=== PATIENT | female | born 1970 | race Caucasian/White ===

== ENCOUNTER 2018-03-03 22:14 | Inpatient (IN) | payer OTHER ==
[~2018-03-03] VITALS: Ht 162.6 cm; Wt 62.3 kg
[~2018-03-03 22:14] MED LIST: AMANTADINE HCL100 M2 PO; AMBIEN10 M1 PO; AMPHETAMINE SAL10 MG PO; AMRIX15 M1 PO; B12 1MG PE1000 MCG/M IM; BENADRYL ALLERG25 MG PO; BENADRYL50 MG/ML; CARISOPRODOL350 M1 PO; CARISOPRODOL350 MG PO; COUMADIN 1 MG TA1 MG PO; COUMADIN 5 MG TA5 MG PO; CYANOCOBAL1000 MCG/2 IM; CYMBALTA30 M1 PO; DEXTROAMP-AMPHE10 MG PO; DIAZEPAM5 MG PO; DILAUDID 4 MG TA4 MG PO; DILAUDID2 MG PO; DILAUDID4 M1 PO; DILAUDID8 MG PO; ERGOCALCIFER50000 IU PO; FIORICET 325 MG1 TAB PO; HYDROMORPHONE HC4 M1 PO; HYDROMORPHONE HC4 MG PO; IBU800 MG PO; IMITREX50 M1 PO; ISOMETHEPT-DIC1 EACH PO; MAGNESIUM OXID500 MG PO; METOCLOPRAMIDE10 MG PO; NAPROXEN SODIU550 M1 PO; NAPROXEN SODIU550 MG PO; ONDANSETRON HCL8 MG PO; REGLAN10 M1 PO; REGLAN10 MG PO; RELISTOR 112 MG/0.6 SC; SUMATRIPTAN SU100 MG PO; TIZANIDINE HCL2 M1 PO; TOPIRAMATE100 M2 PO; TORADOL IV; TRAZODONE HCL50 M1 PO; TYLENOL XSTR500 MG PO; VALIUM5 M2 PO; VITAMIN D350000 UNIT PO; VITAMIN D50000 IU PO; VOLTAREN100 GM TOP; ZOFRAN4 MG/5 ML IV; [UNRECOGNIZED DRUG - OTHER] IV; [UNRECOGNIZED DRUG - OTHER] IV
--- NOTE | 2018-03-04 00:15 | ED GENERAL ADULT ---
History of Present Illness General Chief Complaint: General Adult Stated Complaint: UNSTEADY GAIT, "09/28 PAIN WAIST DOWN" Source: patient, family, old records Exam Limitations: no limitations Vital Signs & Intake/Output Vital Signs & Intake/Output Vital Signs Date Time Temp Pulse Resp B/P B/P Pulse O2 O2 Flow FiO2 Mean Ox Delivery Rate 03/035 98.4 102 18 109/70 99 Room Air ED Intake and Output 03/04 0000 03/03 1200 Intake Total Output Total Balance Patient 121 lb Weight Weight Estimated Measurement Method Allergies Coded Allergies: No Known Allergies (02/28/16) Reconcile Medications Carisoprodol 350 MG TABLET 1 TAB PO BIDP PRN MUSCLE RELAXER (Reported) Cholecalciferol (Vitamin D3) (Vitamin D3) 50,000 UNIT CAPSULE 1 CAP PO QFRI SUPPLEMENT (Reported) Cyanocobalamin (Vitamin B-12) (Cyanocobalamin Injection) 1,000 MCG/1 ML VIAL 1 ML IM QWED SUPPLEMENT (Reported) Cyclobenzaprine HCl (Amrix) 15 MG CAP.ER.24H 1 CAP PO QPM MUSCLE RELAXER ( Reported) Dextroamphetamine/Amphetamine (Dextroamp-Amphetamin 10 MG Tab) 10 MG TABLET 1 TAB PO DAILY ALERTNESS (Reported) Diazepam (Valium) 5 MG TABLET 1 TAB PO TID ANXIETY (Reported) Diclofenac Sodium (Voltaren) 1 % GEL..GRAM. 1 GUERRERO TOP AD PRN NECK (Reported) apply to affected area(s) Duloxetine Hydrochloride (Cymbalta) 30 MG CAPSULE.DR 90 MG PO DAILY BONE PAIN (Reported) Isomethept/Dichlphn/Acetaminop (Ihqohifzoz-Jkvheoiayy-Zmavcsun) 65 MG-100 MG-325 MG CAPSULE 1 TAB PO PRN MIGRAINES (Reported) Magnesium Oxide 500 MG TABLET 1 TAB PO DAILY SUPPLEMENT (Reported) Metoclopramide HCl (Reglan) 10 MG TABLET 1 TAB PO AD PRN MIGRAINES (Reported) 30 minutes before meals and bedtime Naproxen Sodium 550 MG TABLET 1 TAB PO AD PRN MIGRAINES (Reported) Ondansetron HCl 8 MG TABLET 1 TAB PO PRN NAUSEA AFTER IVIG (Reported) Sumatriptan Succinate (Imitrex) 50 MG TABLET 2 TAB PO DAILY migraine please take the tablets each, two hrs apart.. Tizanidine HCl 2 MG TABLET 3 TAB PO QPM MUSCLE RELAXER (Reported) Topiramate 100 MG TABLET 1 TAB PO TID MIGRAINE (Reported) Trazodone HCl 50 MG TABLET 1 TAB PO QPM PRN SLEEP (Reported) Zolpidem Tartrate (Ambien) 10 MG TABLET 1 TAB PO QHS PRN SLEEP (Reported) Triage Note: RECEIVED 47 YO FEMALE C/O BILATERAL HIP PAIN AND LOWER BACK PAIN, 09/28. PT ALSO C/O SEVERE MIGRAINE H/A THIS AM. PT CURRENTLY IN PAIN CLINIC AND INSTRUCTED TO GO TO THE ED FOR A [address] BRYANT. Triage Nurses Notes Reviewed? yes HPI: Patient sent in for admission for MS exacerbation. She was also patient with the pain clinic. Patient states that she has pain 12 out of 10 in her lower back and both hips. Patient feels weak secondary to the EMS as well as the pain. Her pain is unrelieved with her pain medication at home. Similar symptoms in the past with MS exacerbations. Patient was sent in for admission. Patient denies any fevers or chills. Past History Travel History Traveled to [place] past 21 day No Medical History Any Pertinent Medical History? see below for history Neurological: migraine, multiple sclerosis, "NEUROLOGIC LYME DISEASE" EENT: NONE Cardiovascular: NONE Respiratory: NONE Gastrointestinal: NONE Hepatic: NONE Renal: NONE Musculoskeletal: fracture, POSTERIOR TIBIA FX POSTERIOR TIBIAL TENDONIT Psychiatric: anxiety, insomnia Endocrine: NONE Blood Disorders: IV IG TREATMENTS Cancer(s): NONE CORRECTIONS CADET/Reproductive: NONE Other Medical Hx: Insomnia History of MRSA: No History of VRE: No History of CDIFF: No Surgical History Surgical History: non-contributory, N Psychosocial History Who do you live with Family Services at Home Nursing What is your primary language American Tobacco Use: Never used ETOH Use: denies use Illicit Drug Use: denies illicit drug use Family History Family History, If Any: MOTHER Uterine fibroid Hx Contributory? No Review of Systems Review of Systems Constitutional: Reports: no symptoms. EENTM: Reports: no symptoms. Respiratory: Reports: no symptoms. Cardiovascular: Reports: no symptoms. GI: Reports: no symptoms. Genitourinary: Reports: no symptoms. Musculoskeletal: Reports: see HPI, back pain, joint pain. Skin: Reports: no symptoms. Neurological/Psychological: Reports: see HPI, anxiety, headache, weakness. Hematologic/Endocrine: Reports: no symptoms. Immunologic/Allergic: Reports: no symptoms. All Other Systems: Reviewed and Negative Physical Exam Physical Exam General Appearance: well developed/nourished, alert, awake, moderate distress Head: atraumatic, normal appearance Eyes: Bilateral: PERRL, EOMI. Ears, Nose, Throat: normal pharynx, normal ENT inspection Neck: normal inspection, supple, full range of motion Respiratory: normal breath sounds, chest non-tender, no respiratory distress, lungs clear Cardiovascular: regular rate/rhythm, normal peripheral pulses Gastrointestinal: normal bowel sounds, soft, non-tender Back: normal inspection Extremities: normal inspection, normal capillary refill, no edema Neurologic/Psych: no motor/sensory deficits, awake, alert Skin: intact, normal color, warm/dry Core Measures ACS in differential dx? No CVA/TIA Diagnosis: No Sepsis Present: No Sepsis Focused Exam Completed? No Progress Differential Diagnoses I considered the following diagnoses in my evaluation of the patient: [MS EXACERBATION] Plan of Care: Orders Procedure Date/time Status Heart Healthy Diet 03/04 B Active Patient Data 03/04 101 Active ED Holding Orders 03/04 57 Active Admit to inpatient 03/04 57 Active Vital Signs 03/04 57 Active Code Status 03/04 57 Active URINALYSIS 03/04 8 Active COMPREHENSIVE METABOLIC PANEL 03/04 8 Complete CBC WITHOUT DIFFERENTIAL 03/04 8 Complete Current Medications Sig/Brent Start time Last Medication Dose Stop Time Status Admin Methylprednisolone 1,000 MG ONCE ONE 03/04 0030 AC 03/04 (Solu Medrol) 03/04 022 0100 Dextrose/Water 1,000 ML (D5W 1000) Laboratory Tests 03/04/18 0017: Anion Gap 11, Estimated GFR > 60, BUN/Creatinine Ratio 20.0, Glucose 97, Calcium 9.1, Total Bilirubin 0.4, AST 29, ALT 21, Alkaline Phosphatase 50, Total Protein 8.0, Albumin 4.2, Globulin 3.8, Albumin/Globulin Ratio 1.1, CBC w Diff NO MAN DIFF REQ, RBC 4.39, MCV 88.8, MCH 30.2, MCHC 34.1, RDW 13.4, MPV 7.8, Gran % 62.5, Lymphocytes % 25.6, Monocytes % 7.9, Eosinophils % 3.2, Basophils % 0.8, Absolute Granulocytes 3.1, Absolute Lymphocytes 1.3, Absolute Monocytes 0.4, Absolute Eosinophils 0.2, Absolute Basophils 0 Initial ED EKG: none Departure Departure Disposition: STILL A PATIENT Condition: Stable Clinical Impression Primary Impression: Exacerbation of multiple sclerosis Referrals: Ron EDDY,Kaylin Grier (PCP/Family) Departure Forms: Customer Survey General Discharge Information Admission Note Spoke With: Nikos Siddiqi MD Documentation of Exam: Documentation of any treatments & extenuating circumstances including Concerns Regarding Discharge (functional status, medication knowledge or non-compliance, living conditions, etc.) that warrant an admission rather than observation: [ PULSE DOSE STEROIDS, DAPTOMYCIN, WILL CONSULT, PT EVALUATION, PAIN CONTROL] Critical Care Note Critical Care Note Critical Care Time: non-applicable
[2018-03-04 00:37] LABS: ABSOLUTE BASOPHIL COUNT 0 /CUMM (0.0-0.2); ABSOLUTE EOSINOPHIL COUNT 0.2 /CUMM (0.0-0.7); ABSOLUTE GRANULOCYTE CT 3.1 /CUMM (1.4-6.5); ABSOLUTE LYMPH COUNT 1.3 /CUMM (1.2-3.4); ABSOLUTE MONOCYTE COUNT 0.4 /CUMM (0.10-0.60); BASOPHIL % 0.8 % (0.0-2.0); EOSINOPHIL % 3.2 % (0-5); GRANULOCYTE % 62.5 % (42.2-75.2); MEAN CORPUSCULAR HGB 30.2 PG (27.0-31.0); MEAN CORPUSCULAR HGB CONC 34.1 G/DL (33.0-37.0); MEAN CORPUSCULAR VOLUME 88.8 FL (81.0-99.0); MEAN PLATELET VOLUME 7.8 FL (7.4-10.4); PLATELET COUNT 273 /CUMM (130-400); RBC DISTRIBUTION WIDTH 13.4 % (11.5-14.5); RED BLOOD CELL CT 4.39 /CUMM (4.20-5.40)
--- NOTE | 2018-03-04 01:08 | History & Physical ---
Vic EDDY,Katelynn 03/04/18 0108: General Information and HPI MD Statement: I have seen and personally examined SEMAUS WHEELER and documented this H&P. The patient is a 47 year old F who presented with a patient stated chief complaint of [bilateral hip pain and headache]. Source of Information: patient, family, old records Exam Limitations: no limitations History of Present Illness: 47 yo F with a past medical history of multiple sclerosis, migraine, anxiety, depression, remitting-relapsing MS. who presents to ED complaining of severe pain in both hips 09/28, unsteady gait, headache which all started this morning. The patient was last admitted to [facility] in June 2017 for acute relapse of MS. Since then she was following up with Dr. Ferro and with pain management clinic. The patient reports that her pain was perfectly controlled with her pain meds prescribed through the pain management ([facility] Massey) however last week when she saw her neurologist she was advised to come to the hospital for 5 day course of daptomycin and steroids. This morning when she woke up from sleep she started having sharp pain in both hips which radiates down to the back of her left knee. She was not able to walk because of the pain. She felt a little weakness but most likely it was due to the pain as per the patient words. She also complains of severe headache which involves the back of her head and go to the front associated with associated with left eyebrow, eyelids and upper lip twitching in addition to few twitches in her neck. Patient also endorses chronic tingling to her left upper back. Patient mentioned that she only follow-up with pain management and neurologist, Patient mentioned that that has been recent changes to her medication, with the addition of Exalgo (extended release Dilaudid 12 mg once daily with Dilaudid 8 mg for breakthrough pain. Patient mentioned that today she ran out of the Exalgo and she think this might have triggered her pain. She also reports feeling anxious, nausea, hot flashes. She denies any chest pain, cough, vomiting, diarrhea or constipation. She also denies any urinary or fecal incontinence or focal weakness. Patient denies any other hospital admissions other than [facility]. She receives IVIG every 4 weeks the last dose was on 02/09 and 02/10. Which she takes at home. Allergies/Medications Allergies: Coded Allergies: No Known Allergies (02/28/16) Past History Travel History Traveled to [place] past 21 day No Medical History Neurological: migraine, multiple sclerosis, "NEUROLOGIC LYME DISEASE" EENT: NONE Cardiovascular: NONE Respiratory: NONE Gastrointestinal: NONE Hepatic: NONE Renal: NONE Musculoskeletal: fracture, POSTERIOR TIBIA FX POSTERIOR TIBIAL TENDONIT Psychiatric: anxiety, insomnia Endocrine: NONE Blood Disorders: IV IG TREATMENTS Cancer(s): NONE DIRECTOR OF EVENT MARKETING/Reproductive: NONE Other Medical Hx: Insomnia History of MRSA: No History of VRE: No History of CDIFF: No Surgical History Surgical History: non-contributory, N Past Family/Social History Family History Relations & Conditions if any MOTHER Uterine fibroid Psychosocial History Services at Home: Nursing Smoking Status: Never Smoked ETOH Use: denies use Illicit Drug Use: denies illicit drug use Functional Ability ADLs Independent: dressing, eating, toileting, bathing. Ambulation: independent IADLs Independent: shopping, housework, finances, food prep, telephone, transportation , medication admin. Review of Systems Review of Systems Constitutional: Reports: malaise, weakness. EENTM: Reports: blurred vision. Cardiovascular: Denies: no symptoms. Respiratory: Denies: no symptoms. GI: Reports: nausea. Genitourinary: Denies: no symptoms. Musculoskeletal: Reports: joint pain, muscle pain. Skin: Denies: no symptoms. Neurological/Psychological: Reports: anxiety, tingling. Exam & Diagnostic Data Last 24 Hrs of Vital Signs/I&O Vital Signs Date Time Temp Pulse Resp B/P B/P Pulse O2 O2 Flow FiO2 Mean Ox Delivery Rate 03/04 0312 98.0 78 18 126/80 100 Room Air 03/03 2245 98.4 102 18 109/70 99 Room Air Intake & Output 03/04 0800 03/04 0000 03/03 1600 Intake Total 1000 Output Total Balance 1000 Intake, IV 1000 Patient 121 lb Weight Weight Estimated Measurement Method Physical Exam General Appearance Alert, Oriented X3, Cooperative, No Acute Distress Skin No Rashes, No Breakdown, No Significant Lesion HEENT Atraumatic, PERRLA, EOMI, Mucous Membr. moist/pink Neck Supple, No JVD Cardiovascular Normal S1, Normal S2, No Murmurs Lungs Clear to Auscultation Abdomen Normal Bowel Sounds, Soft, No Tenderness Neurological Normal Gait, Normal Speech, Strength at 5/5 X4 Ext, Normal Tone, Sensation Intact, Cranial Nerves 3-12 NL, Reflexes 2+ Extremities No Clubbing, No Cyanosis, No Edema Vascular Normal Pulses Assessment/Plan Assessment: 47 yo F with a past medical history of multiple sclerosis, migraine, anxiety, depression, remitting-relapsing MS. who presents to ED complaining of severe pain in both hips 12/10, unsteady gait, headache which all started this morning. Most likely her symptoms are due to MS exacerbation. Vital signs on admission: Blood pressure 109/70, pulse 102, temperature 98.4, respiratory rate 18, pulse ox 99 on room air, Labs on admission: Normal CBCT, BEP, UA showed urine WBC 35. In the ED the patient received sodium Medrol 1000milligrams IV, daptomycin 324 IV once and Dilaudid 2 mg IV once #Acute exacerbation of Remitting-relapsing MS likely due to to stress MRI brain 2015 (comparison Jul 2014) revealed no acute intracranial findings. Stable pattern supratentorial greater than infratentorial white matter lesions with a known history of multiple sclerosis. No disease progression. * IV methylprednisolone [address] Ferro * IV Daptomycin 325mg daily * Neurology consult appreciated * Patient is asking to let the pain management team taking care of her to know that she is hospitalized * Consider MRI Brain #History of migraines * Dilaudid 4 mg p.o. every 6 as needed for moderate pain * Dilaudid 2 mg IV every 4 as needed for severe pain #History of anxiety and depression * Resume home meds including Cymbalta, trazodone, Valium Diet-Regular DVT ppx: SC heparin Code: FC As Ranked By This Provider Problem List: 1. Migraine 2. Multiple sclerosis Core Measures/Misc (07/06) Acute Coronary Syndrome ACS Diagnosis: No Congestive Heart Failure Congestive Heart Failure Diagnosis No Cerebrovascular Accident CVA/TIA Diagnosis: No VTE (View Protocol) VTE Risk Factors Age>40 No Mechanical VTE Prophylaxis d/t N/A MechProphylax Ordered No VTE Pharm Prophylaxis d/t NA PharmProphylax ordered Sepsis (View protocol) Sepsis Present: No Manny Blakely MD 03/04/18 0235: General Information and HPI Allergies/Medications Home Med list Cholecalciferol (Vitamin D3) (Vitamin D3) 50,000 UNIT CAPSULE 1 CAP PO QFRI SUPPLEMENT (Reported) Cyanocobalamin (Vitamin B-12) (Cyanocobalamin Injection) 1,000 MCG/1 ML VIAL 1 ML IM QWED SUPPLEMENT (Reported) Dextroamphetamine/Amphetamine (Dextroamp-Amphetamin 10 MG Tab) 10 MG TABLET 1 TAB PO DAILY ALERTNESS (Reported) Diazepam (Valium) 5 MG TABLET 1 TAB PO TID ANXIETY (Reported) Docusate Sodium 100 MG CAPSULE 1 CAP PO BID CONSTIPATION (Reported) Duloxetine Hydrochloride (Cymbalta) 30 MG CAPSULE.DR 90 MG PO DAILY BONE PAIN (Reported) Isomethept/Dichlphn/Acetaminop (Bgnuquijff-Dzcltqzgzl-Ynnbmhvn) 65 MG-100 MG-325 MG CAPSULE 1 TAB PO PRN MIGRAINES (Reported) Magnesium Oxide 500 MG TABLET 1 TAB PO DAILY SUPPLEMENT (Reported) Metoclopramide HCl (Reglan) 10 MG TABLET 1 TAB PO AD PRN MIGRAINES (Reported) 30 minutes before meals and bedtime Naloxegol Oxalate (Movantik) 25 MG TABLET 1 TAB PO 1/2H BEFOR/BREAKFAST CONSTIPATION (Reported) Ondansetron HCl 8 MG TABLET 1 TAB PO PRN NAUSEA AFTER IVIG (Reported) Topiramate 100 MG TABLET 1 TAB PO BID HEADACHE, MIGRAINE (Reported) Trazodone HCl 50 MG TABLET 1 TAB PO QPM PRN SLEEP (Reported) Zolpidem Tartrate (Ambien) 10 MG TABLET 1 TAB PO QHS PRN SLEEP (Reported) Resident Review Statement Resident Statement: examined this patient, discussed with research program intern, agreed with research program intern, discussed with family, reviewed EMR data (avail), discussed with nursing , reviewed images, amended to note Other Findings: 47-year-old female with past medical history of multiple sclerosis (follows Dr Silvino Ferro), migraine (follows Dr Danyell Lipscomb), anxiety, depression, who presented to the ED for b/l hip and lower extremity pain, and severe headache. According to the patient, she was in her usual state of health receiving IVIG monthly (at home, last dose in January) for MS and her pain meds per pain management clinic at [facility], but since this year, she has been having more episodes of pain, b/l eyebrow/ lips/neck twictches, gait imbalances, leg weakness that are all short-lasting and on Friday03/02/18, she was advised by Dr Ferro that she might benefit from IV Steroids and IV Daptomycin again, and was told to visit the ED if she has increased symptoms. Of note, her last admission in was in 07/06 for MS exacerbation and severe headache, for which she had received five days of IV Methylprednisolone and Daptomycin. This morning, she woke-up in pain over her hip and had severe headache, similar to the migraine headache that she has almost monthly, but severe- rating this as 12/10 in the ED, and 9/10 during interview. ALEJANDRO was occipital moving towards frontal area, severe, constant, releived partially by dilaudid, and she was sensitive to light. She denied any visual changes, tingling/numbness/weakness per se (including of her legs), incontinence. She mentioned an area of tingling over her left upper trunk which is chronic. Vitals, and labs as noted above. EKG not done in the ED. QTc not known (pt has been taking Zofran "for years" per patient). CBC, CMP, UA WNL. U tox pending. She is being admitted in the general medical floor for the management of following issues: # Acute exacerbation of Multiple Sclerosis Patient's presentation is suggestive of MS exacerbation, and will be treated per neurologist/MS specialist Dr Ferro's recommendations. She already received one dose of IV Methylprednisolone 1 gm and IV Daptomycin 325 mg in the ED. * Admit the patient to general medical floor * Monitor vitals, I/O * Monitor for neurological changes, including visual changes * IV Methylprednisolone 1 gm daily for five days total (already received the first dose) * IV Daptomycin 325 mg daily for five days todal (already received the first dose) * Consult with Dr Ferro for follow-up and further management # Migraine, severe Patient has headache specialist Dr Lipscomb, who has been managing her symptoms. She received one dose of IV Dilaudid 2 mg in the ED, which only took the edge off her pain. Pain management plan as follows: * For severe breakthrough pain: Inj Dilaudid 2 mg IV q4 PRN * For moderate pain: Tab Dilaudid 4 mg PO q4PRN * For mil pain: Tab Acetaminophen 650 mg PO q6PRN (not ordered) * Will continue her home meds of Cymbalta, Topamax, Valium, Trazodone, Ambien. # Will continue rest of her home meds. For the ones not in our formulary, will try getting substitute from pain management consult (request not placed yet, home meds ordered so far in the EMR). #Housekeeping: Diet:Regular diet DVT ppx: SQ Lovenox Code status: Full code (note, this is a change form her previous DNR/DNI) IV access: Peripheral Devang EDDY, [facility] 03/04/18 0438: Attending MD Review Statement Attending Statement Attending MD Statement: examined this patient, discuss w/resident/PA/STORM CHASER, agreed w/resident/PA/STORM CHASER, discussed with family, reviewed images, amended to note Attending Assessment/Plan: 47 yo F with h/o multiple sclerosis on IVIG every 4 weeks, anxiety, depression, chronic headache syndrome/ migraine headache s/p botox and follows with pain management clinic, is here for bilateral hip and lower back shooting pain, radiating down her left leg, weakness, gait instability and severe parieto- occipital headache with photophobia that started this morning. Patient had an appointment with Dr. Ferro few days ago and was told to come to ER for 5- day course of steroids if her weakness or pain does not improve. She also reports 'twitching' sensation around her eyebrows and mouth that is new. Last MS exacerbation Jun 2017. Patient follows with pain management (Dakota Massey APRN with Dr. Storey) who prescribed her extended release dilaudid 12 mg and 8 mg. Vitals stable. Exam: AAO in no distress, was able to walk to the bathroom but then reported severe pain when she got back into the bed, Cranial nerves normal, Motor strength 4/5 in her LE, 5/5 both UE, Sensation intact, Reflex 2+. Labs unremarkable. Assessment and plan: 1. Possible MS exacerbation 2. Chronic headache, migraine headache 3. H/o anxiety and depression - Admit to General medicine - Neurochecks - Will continue IV solumedrol 1 gm and IV daptomycin 325 mg daily for 5 days as per Neuro recs - Discuss with Dr. Ferro in AM - Upon discussing the plan, patient's main concern was about pain medications as she needs her IV dilaudid. She refused for pain medications to be managed by hospitalist and wanted Pain management consult as she follows up with them, and they would give her the pain control she needs. - Will continue IV dilaudid 2 mg Q4 PRN and PO dilaudid 4 mg Q6 PRN - Consult Pain management as requested by patient - Gentle hydration - Resume home meds cymbalta, topamax, trazodone, ambien, valium. - Add imitrex 6 mg SC as needed with IV reglan - Check CT-SECRETARY RECEPTIONIST - PT eval DVT ppx Alps/ Lovenox. Full code.
--- NOTE | 2018-03-04 01:59 | Admission Certification ---
Admission Certification Certification Statement - As attending physician, I certify that at the time of - admission, based on clinical presentation, severity of - symptoms, need for further diagnostic testing and - therapeutic interventions, and risk of adverse outcomes - without in-hospital treatment, in my clinical assessment, - this patient requires an acute hospital stay for a minimum - of two nights or longer. I have also considered psychsocial - factors such as support system, advanced age, financial - issues, cognitive issues, and failed out-patient treatments, - past re-admission history, safety of patient, and lack of - compliance as applicable. Specific rationale supporting this admission is: MS exacerbation, migraine headache.
[2018-03-04 03:12] VITALS: BP 126/80
[2018-03-04] MEDS ORDERED: DOCUSATE SODIU100 M3 PO (04:14)
[2018-03-04] MEDS ORDERED: MOVANTIK25 M1 PO (04:16)
--- NOTE | 2018-03-04 08:15 | PN- Att Addend ---
Attending Addendum Attending Brief Note Patient seen and examined. Plan of care discussed with the medical team and the patient. Available lab work and radiology test reports were reviewed. Patient complains of severe headache due to her migraine as well as lower back pain. Is only interested in discussing her pain medications. She also did not have her breakfast this morning. Exam: General: Patient awake alert oriented with moderate to severe distress due to pain CVS: S1 plus S2 without any murmur or gallops Chest: Few scattered crepitation without any wheeze. There is no respiratory distress. 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 and follows commands appropriately Extremities: No edema; no clubbing or cyanosis noted Assessment: * MS exacerbation * Low back pain * History of migraine * History of depression Plan * Continue 5 day course of methylprednisolone and daptomycin * Pain management consult * Continue current pain management; change Dilaudid to IV 4 mg every 4 hours * Okay to feed patient Current Medications Sig/Brent Start time Last Medication Dose Route Stop Time Status Admin Acetaminophen 650 MG Q6P PRN 03/04 0115 AC PO Daptomycin 325 MG Q24H 03/05 100 AC Sodium Chloride 50 ML IV 03/08 0129 Daptomycin 325 MG ONCE ONE 03/04 30 DC 03/04 Sodium Chloride 50 ML IV 03/04 0059 0137 Diazepam 5 MG TID 03/04 0359 AC PO Docusate Sodium 100 MG BID 03/04 09 AC PO Duloxetine HCl 90 MG DAILY 03/04 09 AC PO Enoxaparin Sodium 40 MG DAILY 03/04 900 AC SC Hydromorphone HCl 2 MG Q4P PRN 03/04 0245 AC 03/04 IV 0524 Hydromorphone HCl 4 MG Q6-PRN PRN 03/04 0245 AC PO Hydromorphone HCl 0 .STK-MED ONE 03/04 0103 DC .ROUTE Hydromorphone HCl 2 MG ONCE ONE 03/04 003 DC 03/04 IV 03/04 0031 0100 Magnesium Oxide 400 MG DAILY 03/04 09 AC PO Methylprednisolone 1,000 MG Q24H 03/05 100 AC Dextrose/Water 1,000 ML IV 03/08 0259 Methylprednisolone 1,000 MG ONCE ONE 03/04 30 DC 03/04 Dextrose/Water 1,000 ML IV 03/04 0229 0100 Metoclopramide HCl 10 MG Q6P PRN 03/04 024 AC IV Non-Formulary 0 SEE ADMIN CRITERIA 03/04 430 UNV Medication ANY Non-Formulary 0 SEE ADMIN CRITERIA 03/04 430 DC Medication ANY Non-Formulary 0 SEE ADMIN CRITERIA 03/04 400 UNV Medication ANY Non-Formulary 0 SEE ADMIN CRITERIA.. 03/04 400 UNV Medication ANY Non-Formulary 0 SEE ADMIN CRITERIA 03/04 003 DC Medication ANY Ondansetron HCl 4 MG ONCE ONE 03/04 245 DC 03/04 IV 03/04 246 0314 Ondansetron HCl 4 MG Q6P PRN 03/04 245 AC IV Sumatriptan Succinate 6 MG ONE PRN 03/04 415 AC SC Sumatriptan Succinate 100 MG DAILY NEEDED PRN 03/04 415 AC PO Topiramate 100 MG BID 03/04 0900 AC PO Trazodone HCl 50 MG QPM PRN 03/04 415 AC PO Zolpidem Tartrate 5 MG AT BEDTIME 03/04 2100 AC PO Laboratory Tests 03/04/18 0211: Urine Opiates Screen 1318.00, Methadone Screen 45, Barbiturate Screen < 60, Ur Phencyclidine Scrn < 6.00, Amphetamines Screen 529, U Benzodiazepines Scrn > 800.0 H, Urine Cocaine Screen < 50, Urine Cannabis Screen < 5.00, Urine Color STRAW, Urine Clarity HAZY H, Urine pH 7.0, Ur Specific [place] <= 1.005, Urine Protein NEG, Urine Ketones NEG, Urine Nitrite NEG, Urine Bilirubin NEG, Urine Urobilinogen 0.2, Ur Leukocyte Esterase SMALL H, Ur Microscopic SEDIMENT EXAMINED, Urine RBC RARE, Urine WBC 3-5 H, Ur Epithelial Cells MOD H, Urine Bacteria MOD H, Urine Mucus FEW, Urine Hemoglobin NEG, Urine Glucose NEG 03/04/18 0017: Anion Gap 11, Estimated GFR > 60, BUN/Creatinine Ratio 20.0, Glucose 97, Calcium 9.1, Total Bilirubin 0.4, AST 29, ALT 21, Alkaline Phosphatase 50, Total Protein 8.0, Albumin 4.2, Globulin 3.8, Albumin/Globulin Ratio 1.1, CBC w Diff NO MAN DIFF REQ, RBC 4.39, MCV 88.8, MCH 30.2, MCHC 34.1, RDW 13.4, MPV 7.8, Gran % 62.5, Lymphocytes % 25.6, Monocytes % 7.9, Eosinophils % 3.2, Basophils % 0.8, Absolute Granulocytes 3.1, Absolute Lymphocytes 1.3, Absolute Monocytes 0.4, Absolute Eosinophils 0.2, Absolute Basophils 0 Vital Signs Date Time Temp Pulse Resp B/P B/P Pulse O2 O2 Flow FiO2 Mean Ox Delivery Rate 03/04 0336 Room Air 03/04 0312 98.0 78 18 126/80 100 Room Air 03/03 2245 98.4 102 18 109/70 99 Room Air Intake & Output 03/04 1600 03/04 0800 03/04 0000 Intake Total 1000 Output Total Balance 1000 Intake, IV 1000 Patient 127 lb 121 lb Weight Weight Bed scale Estimated Measurement Method
--- NOTE | 2018-03-04 11:21 | Patient Discharge Instructions ---
See Addendum Discharge Instructions General Discharge Information You were seen/treated for: MS exacerbation Unstaedy gait Watch for these problems: Numbness, tingling, vision changes, exacerbation of pain, fall, frequency in urenation and weakness in any part of body. If you experience any of these symptoms please come to ED or call to your pcp. Special Instructions: Follow up with pcp in one week. Follow up with your neurologist in one week. Follow up with pain clinic in one week. Diet Recommended Diet: Regular Activity Activity Self Limited: Yes Acute Coronary Syndrome Inclusion Criteria At DC or during hospital stay patient has or had the following: ACS DIAGNOSIS No Discharge Core Measures Meds if any: Prescribed or Continued at Discharge Meds if any: NOT Prescribed or Continued at Discharge Congestive Heart Failure Inclusion Criteria At DC or during hospital stay patient has or had the following: CHF DIAGNOSIS No Discharge Core Measures Meds if any: Prescribed or Continued at Discharge Meds if any: NOT Prescribed or Continued at Discharge Cerebrovascular accident Inclusion Criteria At DC or during hospital stay patient has or had the following: CVA/TIA Diagnosis No Discharge Core Measures Meds if any: Prescribed or Continued at Discharge Meds if any: NOT Prescribed or Continued at Discharge Venous thromboembolism Inclusion Criteria VTE Diagnosis No VTE Type NONE VTE Confirmed by (Test) NONE Discharge Core Measures - Per Current guidelines, there needs to be overlap - treatment for the first 5 days of Warfarin therapy. - If discharged on Warfarin prior to 5 days of - overlap therapy, the patient will need to be - assessed for post discharge needs including - *Post discharge parental anticoagulation - *Warfarin and/or parental anticoagulation education - *Follow up date to check INR post discharge At least 5 days overlap therapy as Inpatient No Meds if any: Prescribed or Continued at Discharge Note: Overlap Therapy is Warfarin and Anticoagulant Meds if any: NOT Prescribed or Continued at Discharge
[2018-03-04 14:22] VITALS: BP 102/60
--- NOTE | 2018-03-04 17:46 | Cons- Pain Management ---
General Information and HPI Consulting Request Date of Consult: 03/04/18 Requested By: Analisa EDDY,Sarah History of Present Illness: I am asked to consult on this patient who was admitted this morning for MS roseline bvy Dr. Rueda. She is know to me and is a patient of mine at [facility]. She is alert and oriented and resting comfortablly. She has a history of MS and severe migraine headache disorder. I treat her for both chronic bodywide pain secondary to MS as well as severe migraine headaches. Her opioid regimen currently consists of exalgo 12mg daily and dilaudid 8mg tid prn as well as various adjunctive medications for migraine prevention and abortive. Allergies/Medications Allergies: Coded Allergies: No Known Allergies (02/28/16) Home Med List: Cholecalciferol (Vitamin D3) (Vitamin D3) 50,000 UNIT CAPSULE 1 CAP PO QFRI SUPPLEMENT (Reported) Cyanocobalamin (Vitamin B-12) (Cyanocobalamin Injection) 1,000 MCG/1 ML VIAL 1 ML IM QWED SUPPLEMENT (Reported) Dextroamphetamine/Amphetamine (Dextroamp-Amphetamin 10 MG Tab) 10 MG TABLET 1 TAB PO DAILY ALERTNESS (Reported) Diazepam (Valium) 5 MG TABLET 1 TAB PO TID ANXIETY (Reported) Docusate Sodium 100 MG CAPSULE 1 CAP PO BID CONSTIPATION (Reported) Duloxetine Hydrochloride (Cymbalta) 30 MG CAPSULE.DR 90 MG PO DAILY BONE PAIN (Reported) Isomethept/Dichlphn/Acetaminop (Xtixpyvzap-Rhuszmxssh-Zgpldkyj) 65 MG-100 MG-325 MG CAPSULE 1 TAB PO PRN MIGRAINES (Reported) Magnesium Oxide 500 MG TABLET 1 TAB PO DAILY SUPPLEMENT (Reported) Metoclopramide HCl (Reglan) 10 MG TABLET 1 TAB PO AD PRN MIGRAINES (Reported) 30 minutes before meals and bedtime Naloxegol Oxalate (Movantik) 25 MG TABLET 1 TAB PO 1/2H BEFOR/BREAKFAST CONSTIPATION (Reported) Ondansetron HCl 8 MG TABLET 1 TAB PO PRN NAUSEA AFTER IVIG (Reported) Topiramate 100 MG TABLET 1 TAB PO BID HEADACHE, MIGRAINE (Reported) Trazodone HCl 50 MG TABLET 1 TAB PO QPM PRN SLEEP (Reported) Zolpidem Tartrate (Ambien) 10 MG TABLET 1 TAB PO QHS PRN SLEEP (Reported) Past History Medical History Neurological: migraine, multiple sclerosis, "NEUROLOGIC LYME DISEASE" EENT: NONE Cardiovascular: NONE Respiratory: NONE Gastrointestinal: NONE Hepatic: NONE Renal: NONE Musculoskeletal: fracture, POSTERIOR TIBIA FX POSTERIOR TIBIAL TENDONIT Psychiatric: anxiety, insomnia Endocrine: NONE Blood Disorders: IV IG TREATMENTS Cancer(s): NONE NETBACKUP ENGINEER/Reproductive: NONE Other Medical Hx Insomnia Surgical History Surgical History: none, non-contributory Family History Relations & Conditions If Any MOTHER Uterine fibroid Psychosocial History Services at Home: Nursing Smoking Status: Never Smoked ETOH Use: denies use Illicit Drug Use: denies illicit drug use Functional Ability ADLs Independent: dressing, eating, toileting, bathing. Ambulation: independent IADLs Independent: shopping, housework, finances, food prep, telephone, transportation , medication admin. Exam & Diagnostic Data Last 24 Hrs of Vitals/I&Os: Vital Signs Date Time Temp Pulse Resp B/P B/P Pulse O2 O2 Flow FiO2 Mean Ox Delivery Rate 03/04 1422 97.0 72 18 102/60 97 03/04 0336 Room Air 03/04 0312 98.0 78 18 126/80 100 Room Air 03/03 2245 98.4 102 18 109/70 99 Room Air Intake & Output 03/04 1600 03/04 0800 03/04 0000 Intake Total 1000 Output Total Balance 1000 Intake, IV 1000 Patient 127 lb 121 lb Weight Weight Bed scale Estimated Measurement Method Alert and oriented. Full lower extremity ROM but with pain. Patient is ambulatiung without assiatnce and no assistive devices. Assessment/Plan Assessment/Plan: The following are my recommendations for this patient: - D/C Dilaudid 3mg IV Q2 hours PRN - D/C oxycontin 15mg po bid ATC - D/C Sumatriptan 100mg daily PRN - Begin Dilaudid 4mg IV Q3 hours prn for pain - Begin Oxycontin 15mg TID PO for pain - Begin Sumatriptan 100mg 1 tab at onset of migraine and 1 tab two hours later if migraine persists (not to exceed 2 tabs in a 24 hour period) - Naproxen 500mg bid po ATC for hip pain and inflammation (D/C if AE of nausea, tachycardia, signs or symtpoms of internal bleeding) Consult Acknowledgment - Thank you for your consult request.
[2018-03-04 22:47] VITALS: BP 104/60
[2018-03-05 07:03] VITALS: BP 110/60
--- NOTE | 2018-03-05 10:16 | PN- Att Addend ---
Attending Addendum Attending Brief Note Patient seen and examined. Plan of care discussed with the medical team and the patient. Available lab work and radiology test reports were reviewed. Patient complains of low back pain 06/29. She states that her pain is not better compared to yesterday. Yesterday she wanted to sign AMA but then later on decided to stay. Patient's focused on her pain regimen. Patient is able to walk to bathroom by herself. Exam: General: Patient awake alert oriented with moderate distress due to pain; CVS: S1 plus S2 without any murmur or gallops Chest: Few scattered crepitation without any wheeze. There is no respiratory distress. 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 I'll the patient states the really high level of pain she appears to be comfortable and there appears to be significant disconnect with her stated level of pain and her overall discomfort. * Plan for discharge home on Friday * No need to check labs tomorrow Current Medications Sig/Brent Start time Last Medication Dose Route Stop Time Status Admin Acetaminophen 650 MG Q6P PRN 03/04 0115 AC PO Daptomycin 325 MG Q24H 03/06 1400 AC Sodium Chloride 50 ML IV 03/08 1429 Daptomycin 325 MG Q24H 03/05 0100 DC 03/05 Sodium Chloride 50 ML IV 03/08 0129 0130 Diazepam 5 MG TID 03/04 0359 AC 03/05 PO 0943 Docusate Sodium 100 MG BID 03/04 09 AC 03/05 PO 0944 Duloxetine HCl 90 MG DAILY 03/04 09 AC 03/05 PO 0945 Enoxaparin Sodium 40 MG DAILY 03/04 09 AC SC Hydromorphone HCl 4 MG Q3P PRN 03/04 1845 AC 03/05 IV 0942 Hydromorphone HCl 3 MG Q2P PRN 03/04 1430 DC 03/04 IV 1555 Hydromorphone HCl 2 MG ONCE PRN 03/04 1315 DC IV 03/04 1500 Hydromorphone HCl 2 MG Q2P PRN 03/04 1315 DC 03/04 IV 1321 Hydromorphone HCl 2 MG Q4P PRN 03/04 0245 DC 03/04 IV 0524 Hydromorphone HCl 4 MG Q6-PRN PRN 03/04 0245 DC PO Lubiprostone 24 MCG BID 03/04 2100 AC 03/05 PO 0945 Magnesium Oxide 400 MG DAILY 03/04 0900 AC 03/05 PO 0945 Methylphenidate HCl 10 MG 0800,1200,1700 PRN 03/04 2100 AC PO Methylprednisolone 1,000 MG Q24H 03/06 09 AC Dextrose/Water 1,000 ML IV 03/08 1059 Methylprednisolone 1,000 MG Q24H 03/05 0100 DC 03/05 Dextrose/Water 1,000 ML IV 03/08 0259 0200 Metoclopramide HCl 10 MG Q6P PRN 03/04 0245 AC IV Naproxen 500 MG BID 03/04 2100 AC PO Non-Formulary 0 SEE ADMIN CRITERIA 03/04 0400 CAN Medication ANY Ondansetron HCl 4 MG Q6P PRN 03/04 0245 AC IV Oxycodone HCl 15 MG Q8 03/04 2200 AC 03/05 PO 0634 Oxycodone HCl 15 MG Q12 03/04 1430 DC 03/04 PO 1450 Sumatriptan Succinate 100 MG DAILY NEEDED 03/04 184 AC PO Sumatriptan Succinate 6 MG ONE PRN 03/04 0415 DC 03/04 SC 1321 Sumatriptan Succinate 100 MG DAILY NEEDED PRN 03/04 0415 DC PO Topiramate 100 MG BID 03/04 0900 AC 03/05 PO 0945 Trazodone HCl 50 MG QPM PRN 03/04 0415 AC 03/04 PO 2205 Zolpidem Tartrate 5 MG AT BEDTIME 03/04 2100 AC 03/04 PO 2202 Laboratory Tests 03/04/18 0700: Anion Gap 11, Estimated GFR > 60, BUN/Creatinine Ratio 24.0 03/04/18 0600: CBC w Diff Cancelled, WBC Cancelled, RBC Cancelled, Hgb Cancelled, Hct Cancelled , MCV Cancelled, MCH Cancelled, MCHC Cancelled, RDW Cancelled, Plt Count Cancelled, MPV Cancelled 03/04/18 0211: Urine Opiates Screen 1318.00, Methadone Screen 45, Barbiturate Screen < 60, Ur Phencyclidine Scrn < 6.00, Amphetamines Screen 529, U Benzodiazepines Scrn > 800.0 H, Urine Cocaine Screen < 50, Urine Cannabis Screen < 5.00, Urine Color STRAW, Urine Clarity HAZY H, Urine pH 7.0, Ur Specific [place] <= 1.005, Urine Protein NEG, Urine Ketones NEG, Urine Nitrite NEG, Urine Bilirubin NEG, Urine Urobilinogen 0.2, Ur Leukocyte Esterase SMALL H, Ur Microscopic SEDIMENT EXAMINED, Urine RBC RARE, Urine WBC 3-5 H, Ur Epithelial Cells MOD H, Urine Bacteria MOD H, Urine Mucus FEW, Urine Hemoglobin NEG, Urine Glucose NEG 03/04/18 0017: Anion Gap 11, Estimated GFR > 60, BUN/Creatinine Ratio 20.0, Glucose 97, Calcium 9.1, Total Bilirubin 0.4, AST 29, ALT 21, Alkaline Phosphatase 50, Total Protein 8.0, Albumin 4.2, Globulin 3.8, Albumin/Globulin Ratio 1.1, CBC w Diff NO MAN DIFF REQ, RBC 4.39, MCV 88.8, MCH 30.2, MCHC 34.1, RDW 13.4, MPV 7.8, Gran % 62.5, Lymphocytes % 25.6, Monocytes % 7.9, Eosinophils % 3.2, Basophils % 0.8, Absolute Granulocytes 3.1, Absolute Lymphocytes 1.3, Absolute Monocytes 0.4, Absolute Eosinophils 0.2, Absolute Basophils 0 Vital Signs Date Time Temp Pulse Resp B/P B/P Pulse O2 O2 Flow FiO2 Mean Ox Delivery Rate 03/05 0703 97.8 73 20 110/60 96 Room Air 03/04 2247 98.6 74 19 104/60 95 Room Air 03/04 1422 97.0 72 18 102/60 97 Intake & Output 03/05 1600 03/05 0800 03/05 0000 Intake Total 1160 240 Output Total Balance 1160 240 Intake, IV 1100 Intake, Oral 60 240
--- NOTE | 2018-03-05 11:18 | PN- Housestaff ---
Subjective Follow-up For: MS exacerbation migraines Subjective: Patient admits to less pain today but still admits to right hip pain. However on repeat questioning she is upset and states that "her pain is not better at all" and states that she is in 9/10 pain. Patient does not appear outwardly to be in severe pain and is laying in bed. Objective Last 24 Hrs of Vital Signs/I&O Vital Signs Date Time Temp Pulse Resp B/P B/P Pulse O2 O2 Flow FiO2 Mean Ox Delivery Rate 03/05 1423 97.5 68 20 110/75 97 Room Air 03/05 0703 97.8 73 20 110/60 96 Room Air 03/04 2247 98.6 74 19 104/60 95 Room Air Intake & Output 03/05 1600 03/05 0800 03/05 0000 Intake Total 420 1160 240 Output Total Balance 420 1160 240 Intake, IV 1100 Intake, Oral 420 60 240 Physical Exam General Appearance: Alert, Oriented X3, No Acute Distress Assessment/Plan Assessment: 47 yo F with a past medical history of multiple sclerosis, migraine, anxiety, depression, remitting-relapsing MS. who presents to ED complaining of severe pain in both hips 12/10, unsteady gait, headache which all started this morning. Most likely her symptoms are due to MS exacerbation. Vital signs on admission: Blood pressure 109/70, pulse 102, temperature 98.4, respiratory rate 18, pulse ox 99 on room air, Labs on admission: Normal CBCT, BEP, UA showed urine WBC 35. In the ED the patient received sodium Medrol 1000milligrams IV, daptomycin 324 IV once and Dilaudid 2 mg IV once #Acute exacerbation of Remitting-relapsing MS likely due to to stress MRI brain 2015 (comparison Jul 2014) revealed no acute intracranial findings. Stable pattern supratentorial greater than infratentorial white matter lesions with a known history of multiple sclerosis. No disease progression. * IV methylprednisolone [address] Ferro * IV Daptomycin 325mg daily * Neurology consult appreciated * Patient is asking to let the pain management team taking care of her to know that she is hospitalized * Consider MRI Brain #History of migraines * Dilaudid 4 mg p.o. every 6 as needed for moderate pain * Dilaudid 2 mg IV every 4 as needed for severe pain #History of anxiety and depression * Resume home meds including Cymbalta, trazodone, Valium Diet-Regular DVT ppx: SC heparin Code: FC
[2018-03-05 14:23] VITALS: BP 110/75
[2018-03-05 22:50] VITALS: BP 116/70
[2018-03-06 06:42] VITALS: BP 110/54
--- NOTE | 2018-03-06 07:40 | PN- Housestaff ---
Subjective Follow-up For: MS exacerbation migraines right hip pain refractory to pain medications Complaints: pain scale (0-10) Subjective: Patient states that her pain is the best control it has been at yet. She does note continued right hip pain that has only minimally been helped by her pain medications. She rates it a 7/10 during interview. She has no other complaints. Review of Systems Constitutional: Reports: no symptoms. Cardiovascular: Reports: no symptoms. Respiratory: Reports: no symptoms. Gastrointestinal: Reports: no symptoms. Genitourinary: Reports: no symptoms. Musculoskeletal: Reports: back pain, joint pain. Skin: Reports: no symptoms. Neurological/Psychological: Reports: no symptoms. Hematologic/Endocrine: Reports: no symptoms. Objective Last 24 Hrs of Vital Signs/I&O Vital Signs Date Time Temp Pulse Resp B/P B/P Pulse O2 O2 Flow FiO2 Mean Ox Delivery Rate 03/06 0642 98.1 62 18 110/54 98 Room Air 03/05 2250 97.9 78 18 116/70 98 03/05 1423 97.5 68 20 110/75 97 Room Air Intake & Output 03/06 1600 03/06 0800 03/06 0000 Intake Total 120 800 Output Total Balance 120 800 Intake, Oral 120 800 Physical Exam General Appearance: Alert, Oriented X3, Cooperative, No Acute Distress Skin: No Rashes, No Breakdown, No Significant Lesion Skin Temp/Moisture Exam: Warm/Dry Sepsis Skin Exam (color): Normal for Ethnicity Neck: Supple, No JVD, no pain on active flexion and rotation Cardiovascular: Regular Rate, Normal S1, Normal S2, No Murmurs Lungs: Clear to Auscultation, Normal Air Movement Abdomen: Normal Bowel Sounds, Soft, No Tenderness Neurological: Normal Gait, Normal Speech, Strength at 5/5 X4 Ext, Sensation Intact Extremities: No Clubbing, No Cyanosis, No Edema Vascular: Normal Pulses, Pulses Symmetrical Current Medications: Current Medications Sig/Brent Start time Last Medication Dose Route Stop Time Status Admin Acetaminophen 650 MG Q6P PRN 03/04 0115 AC PO Daptomycin 325 MG Q24H 03/06 1400 AC Sodium Chloride 50 ML IV 03/08 1429 Diazepam 5 MG TID 03/04 0359 AC 03/06 PO 0817 Docusate Sodium 100 MG BID 03/04 09 AC 03/05 PO 2138 Duloxetine HCl 90 MG DAILY 03/04 0900 AC 03/06 PO 0818 Enoxaparin Sodium 40 MG DAILY 03/04 09 AC SC Fish Oil 1,050 MG DAILY 03/05 1152 AC 03/06 PO 0817 Hydromorphone HCl 4 MG Q3P PRN 03/04 1845 AC 03/06 IV 0816 Lubiprostone 24 MCG BID 03/04 2100 DC 03/05 PO 0945 Magnesium Oxide 400 MG DAILY 03/04 09 AC 03/06 PO 0818 Methylphenidate HCl 10 MG 0800,1200,1700 PRN 03/04 2100 AC PO Methylprednisolone 1,000 MG Q24H 03/06 09 AC Dextrose/Water 1,000 ML IV 03/08 1059 Metoclopramide HCl 10 MG Q6P PRN 03/04 0245 AC IV Naproxen 500 MG BID 03/04 2100 DC PO Non-Formulary 0 SEE ADMIN CRITERIA 03/05 1200 CAN Medication ANY Ondansetron HCl 4 MG Q6P PRN 03/04 0245 AC IV Oxycodone HCl 15 MG Q8 03/04 2200 AC 03/06 PO 0603 Patient Medication 1 ED ONE ONE 03/05 1630 DC Teaching ED 03/05 1631 Patient Own 1 UNIT 03/05 03/05 Medication PO 2138 Patient Own 1 UNIT DAILY 03/05 1300 DC Medication PO Sumatriptan Succinate 100 MG DAILY NEEDED 03/04 1845 AC PO Topiramate 100 MG BID 03/04 09 AC 03/06 PO 0817 Trazodone HCl 50 MG QPM PRN 03/04 0415 AC 03/05 PO 2339 Zolpidem Tartrate 5 MG AT BEDTIME 03/04 2100 AC 03/05 PO 2339 Assessment/Plan Assessment: Assessment: 47 yo F with a past medical history of multiple sclerosis, migraine, anxiety, depression, remitting-relapsing MS. who presents to ED complaining of severe pain in both hips 12/10, shoulders, back, unsteady gait, "brain fog", headache which all started morning of admission. Vital signs on admission: Blood pressure 109/70, pulse 102, temperature 98.4, respiratory rate 18, pulse ox 99 on room air, Labs on admission: Normal CBC, BEP, UA showed urine WBC 35. In the ED the patient received sodium Medrol 1000milligrams IV, daptomycin 324 IV once and Dilaudid 2 mg IV once as per her neurologist Dr. Ferro Patient admitted to general medicine for evaluation and treatment of the following: #Acute Exacerbation of Remitting-Relapsing MS: potentially exacerbated by recent stress which she admits to. MRI brain 2016 showed interval development of a single new lesion within the anterior body of the corpus callosum. Remaining pattern lesions throughout the supratentorial and infratentorial brain is stable. She has a stable pattern supratentorial greater than infratentorial white matter lesions. Question of disease progression as she has not had an MRI since. * IV methylprednisolone [address] Ferro, today is 4/5 dose * IV Daptomycin 325mg daily, today is 4/5 dose * Neurology following * Pain managment following: oxycontin 15mg tid, dilaudid 3mg q2h, patient refusing naproxen. States that this cocktail has been the most helpful in controlling her pain * Consider MRI brain #Right>Left hip pain: is refractory to her multiple pain medications. With long history of steroids, there is potential for osteonecrosis. Patient had hip xray which was negative for any femoral osteonecrosis in 2012. * Follow up imaging is warranted #History of migraines * Patient already on dilaudid for MS pain * Is on Imitrex as needed 1mg at the start of a migraine and 1mg one hour later if migrain persists with max dose 2mg in 24 hours #History of anxiety and depression * Resumed home meds including Cymbalta, trazodone, Valium Diet-Regular DVT ppx: SC heparin Code: NATALIA
--- NOTE | 2018-03-06 10:36 | PN- Att Addend ---
Attending Addendum Attending Brief Note Patient seen and examined. Plan of care discussed with the medical team and the patient. Available lab work and radiology test reports were reviewed. Patient complains of bilateral hip pain which gets worse on walking. Tries any fever chills nausea vomiting abdominal pain or difficulty breathing. Her pain is much better controlled today. Exam: General: Patient awake alert oriented without any distress ; CVS: S1 plus S2 without any murmur or gallops Chest: Few scattered crepitation without any wheeze. There is no respiratory distress. Abdomen: Soft non-tender, bowel sound present, no guarding or rebound [employer]: Awake oriented and follows commands appropriately Extremities: No edema; no clubbing or cyanosis noted Bilateral hip rotation elicit pain; also palpation of greater trochanter bilaterally elicits pain Assessment: * MS exacerbation * Low back pain * History of migraine * History of depression * Bilateral hip pain- patient had an x-ray done in 2012 which showed mild arthritis, patient has not been worked up for septic necrosis Plan * Complete 5 day course of methylprednisolone and daptomycin; apparently she missed a dose of daptomycin and Solu Medrol last night * Continue current pain management; * Plan for discharge home on Friday * No need to check labs tomorrow * Consider MRI bilateral hip to rule out osteonecrosis Current Medications Sig/Brent Start time Last Medication Dose Route Stop Time Status Admin Acetaminophen 650 MG Q6P PRN 03/04 0115 AC PO Daptomycin 325 MG Q24H 03/06 1400 AC Sodium Chloride 50 ML IV 03/08 1429 Diazepam 5 MG TID 03/04 0359 AC 03/06 PO 08 Docusate Sodium 100 MG BID 03/04 09 AC 03/05 PO 2138 Duloxetine HCl 90 MG DAILY 03/04 09 AC 03/06 PO 0818 Enoxaparin Sodium 40 MG DAILY 03/04 09 AC SC Fish Oil 1,050 MG DAILY 03/05 1152 AC 03/06 PO 0817 Hydromorphone HCl 4 MG Q3P PRN 03/04 1845 AC 03/06 IV 0816 Lubiprostone 24 MCG BID 03/04 2100 DC 03/05 PO 0945 Magnesium Oxide 400 MG DAILY 03/04 09 AC 03/06 PO 0818 Methylphenidate HCl 10 MG 0800,1200,1700 PRN 03/04 2100 AC PO Methylprednisolone 1,000 MG Q24H 03/06 0900 AC Dextrose/Water 1,000 ML IV 03/08 1059 Metoclopramide HCl 10 MG Q6P PRN 03/04 0245 IV Naproxen 500 MG BID 03/04 2100 DC PO Non-Formulary 0 SEE ADMIN CRITERIA 03/05 1200 CAN Medication ANY Ondansetron HCl 4 MG Q6P PRN 03/04 0245 AC IV Oxycodone HCl 15 MG Q8 03/04 2200 AC 03/06 PO 0603 Patient Medication 1 ED ONE ONE 03/05 1630 DC Teaching ED 03/05 1631 Patient Own 1 UNIT 03/05 AC 03/05 Medication PO 2138 Patient Own 1 UNIT DAILY 03/05 1300 DC Medication PO Sumatriptan Succinate 100 MG DAILY NEEDED 03/04 184 AC PO Topiramate 100 MG BID 03/04 0900 AC 03/06 PO 0817 Trazodone HCl 50 MG QPM PRN 03/04 0415 AC 03/05 PO 2339 Zolpidem Tartrate 5 MG AT BEDTIME 03/04 2100 AC 03/05 PO 2339 Laboratory Tests 03/04/18 0700: Anion Gap 11, Estimated GFR > 60, BUN/Creatinine Ratio 24.0 03/04/18 0600: CBC w Diff Cancelled, WBC Cancelled, RBC Cancelled, Hgb Cancelled, Hct Cancelled , MCV Cancelled, MCH Cancelled, MCHC Cancelled, RDW Cancelled, Plt Count Cancelled, MPV Cancelled 03/04/18 0211: Urine Opiates Screen 1318.00, Methadone Screen 45, Barbiturate Screen < 60, Ur Phencyclidine Scrn < 6.00, Amphetamines Screen 529, U Benzodiazepines Scrn > 800.0 H, Urine Cocaine Screen < 50, Urine Cannabis Screen < 5.00, Urine Color STRAW, Urine Clarity HAZY H, Urine pH 7.0, Ur Specific Waldo <= 1.005, Urine Protein NEG, Urine Ketones NEG, Urine Nitrite NEG, Urine Bilirubin NEG, Urine Urobilinogen 0.2, Ur Leukocyte Esterase SMALL H, Ur Microscopic SEDIMENT EXAMINED, Urine RBC RARE, Urine WBC 3-5 H, Ur Epithelial Cells MOD H, Urine Bacteria MOD H, Urine Mucus FEW, Urine Hemoglobin NEG, Urine Glucose NEG 03/04/18 0017: Anion Gap 11, Estimated GFR > 60, BUN/Creatinine Ratio 20.0, Glucose 97, Calcium 9.1, Total Bilirubin 0.4, AST 29, ALT 21, Alkaline Phosphatase 50, Total Protein 8.0, Albumin 4.2, Globulin 3.8, Albumin/Globulin Ratio 1.1, CBC w Diff NO MAN DIFF REQ, RBC 4.39, MCV 88.8, MCH 30.2, MCHC 34.1, RDW 13.4, MPV 7.8, Gran % 62.5, Lymphocytes % 25.6, Monocytes % 7.9, Eosinophils % 3.2, Basophils % 0.8, Absolute Granulocytes 3.1, Absolute Lymphocytes 1.3, Absolute Monocytes 0.4, Absolute Eosinophils 0.2, Absolute Basophils 0 Vital Signs Date Time Temp Pulse Resp B/P B/P Pulse O2 O2 Flow FiO2 Mean Ox Delivery Rate 03/06 0642 98.1 62 18 110/54 98 Room Air 03/05 2250 97.9 78 18 116/70 98 03/05 1423 97.5 68 20 110/75 97 Room Air Intake & Output 03/06 1600 03/06 0800 03/06 0000 Intake Total 120 800 Output Total Balance 120 800 Intake, Oral 120 800
[2018-03-06 14:53] VITALS: BP 110/60
--- NOTE | 2018-03-06 17:17 | MRI REPORT ---
EXAMINATION: MR PELVIS WITHOUT CONTRAST CLINICAL INFORMATION: Bilateral hip pain. Presumptive diagnosis of femoral osteonecrosis. COMPARISON: CT dated 12/19/2015. TECHNIQUE: MRI of the pelvis without contrast was obtained using routine sequences. FINDINGS: BONES AND ARTICULAR CARTILAGE: Bone marrow signal is normal in the pelvis and proximal femurs. No fractures or stress reactions. There are no findings of avascular necrosis or femoral head ischemia. Hip joints appear relatively well preserved. No definite labral tears are evident on these images, though sensitivity is low. No appreciable changes of osteoarthritis in the hips or SI joints. No findings of sacroiliitis. MUSCLES AND TENDONS: There is mild tendinosis and peritendinitis at the right gluteus minimus and gluteus medius insertions. Tendinosis at the left hip adductor insertions is more minimal. Tendons are otherwise unremarkable. Patchy foci of intramuscular edema signal are present within the proximal quadriceps muscles, right gluteus epifanio muscle, and intervening fascial planes at the thighs, potentially due to muscle strains or contusions. No specific findings of infection are identified. No muscle atrophy. JOINT FLUID AND BURSAE: There is mild trochanteric bursitis on the right. No iliopsoas bursitis. Small amount of fluid in the hip joints bilaterally is within normal limits. LIGAMENTUM TERES: Intact. INTRAPELVIC SOFT TISSUES: IUD is present in the uterus. Intrapelvic soft tissues are otherwise unremarkable. Inguinal lymph nodes are within normal limits in size. IMPRESSION: 1. No evidence of proximal femoral osteonecrosis. No acute osseous abnormalities. 2. Mild tendinosis at the gluteus minimus and medius insertions, right side greater than left. Recommend radiographic correlation for possible superimposed foci of calcific tendinitis as a small punctate foci of calcific tendinitis is evident at the left gluteus minimus insertion on the prior study from 2016. 3. Mild right-sided trochanteric bursitis. No iliopsoas bursitis. 4. A few patchy nonspecific foci of intramuscular edema and fascial edema in the thigh musculature, potentially due to strains. No evidence of infection.
[2018-03-06 22:04] VITALS: BP 104/66
[2018-03-07 06:20] VITALS: BP 102/60
--- NOTE | 2018-03-07 09:01 | PN- Housestaff ---
Maria De Jesus EDDY,Irene 03/07/18 0901: Subjective Follow-up For: MS exacerbation migraines right hip pain refractory to pain medications Subjective: Patient states that her pain is less controlled today and doesn't understand why. She continues to have pain in her back and neck and hips. Yesterday an MRI of the hips revealed no osteonecrosis of the femur which was suspected secondary to her long-term steroid use. No other complaints other than this pain. Review of Systems Constitutional: Reports: no symptoms. EENTM: Reports: no symptoms. Cardiovascular: Reports: no symptoms. Respiratory: Reports: no symptoms. Gastrointestinal: Reports: no symptoms. Genitourinary: Reports: no symptoms. Musculoskeletal: Reports: back pain, joint pain, muscle pain. Skin: Reports: no symptoms. Neurological/Psychological: Reports: anxiety. Objective Last 24 Hrs of Vital Signs/I&O Vital Signs Date Time Temp Pulse Resp B/P B/P Pulse O2 O2 Flow FiO2 Mean Ox Delivery Rate 03/07 1425 97.9 74 20 100/58 99 03/07 0620 98.1 61 18 102/60 96 Room Air 03/06 2204 97.8 66 16 104/66 97 Room Air Intake & Output 03/07 1600 03/07 0800 03/07 0000 Intake Total 1000 300 300 Output Total Balance 1000 300 300 Intake, Oral 1000 300 300 Physical Exam General Appearance: Alert, Oriented X3, Cooperative, Mild Distress Skin: No Rashes, No Breakdown, No Significant Lesion Skin Temp/Moisture Exam: Warm/Dry HEENT: Atraumatic, EOMI, Mucous Membr. moist/pink Cardiovascular: Regular Rate, Normal S1, Normal S2, No Murmurs Lungs: Clear to Auscultation, Normal Air Movement Abdomen: Normal Bowel Sounds, Soft, No Tenderness Neurological: Normal Speech Extremities: No Edema, Normal Pulses Current Medications: Current Medications Sig/Brent Start time Last Medication Dose Route Stop Time Status Admin Acetaminophen 650 MG Q6P PRN 03/04 0115 AC PO Daptomycin 325 MG Q24H 03/06 1400 AC 03/07 Sodium Chloride 50 ML IV 03/08 142 1444 Diazepam 5 MG TID 03/04 0359 AC 03/07 PO 1444 Docusate Sodium 100 MG BID 03/04 09 AC 03/07 PO 1020 Duloxetine HCl 90 MG DAILY 03/04 09 AC 03/07 PO 1020 Enoxaparin Sodium 40 MG DAILY 03/04 09 AC SC Fish Oil 1,050 MG DAILY 03/05 1152 AC 03/07 PO 1020 Hydromorphone HCl 4 MG Q3P PRN 03/04 184 AC 03/07 IV 1808 Magnesium Oxide 400 MG DAILY 03/04 900 AC 03/07 PO 1020 Methylphenidate HCl 10 MG 0800,1200,1700 PRN 03/04 2100 AC PO Methylprednisolone 1,000 MG Q24H 03/06 900 AC 03/07 Dextrose/Water 1,000 ML IV 03/08 1059 1019 Metoclopramide HCl 10 MG Q6P PRN 03/04 0245 AC IV Ondansetron HCl 4 MG Q6P PRN 03/04 0245 AC IV Oxycodone HCl 15 MG Q8 03/04 220 AC 03/07 PO 1444 Patient Own 1 UNIT 03/05 Medication PO 2113 Sumatriptan Succinate 100 MG DAILY NEEDED 03/04 1845 AC PO Topiramate 100 MG BID 03/04 900 AC 03/07 PO 1020 Trazodone HCl 50 MG .STK-MED ONE 03/07 0005 DC PO 03/07 0006 Trazodone HCl 50 MG QPM PRN 03/04 0415 AC 03/07 PO 0006 Zolpidem Tartrate 5 MG AT BEDTIME 03/04 2100 AC 03/07 PO 0006 Assessment/Plan Assessment: 47 yo F with a past medical history of multiple sclerosis, migraine, anxiety, depression, remitting-relapsing MS. who presents to ED complaining of severe pain in both hips 09/28, shoulders, back, unsteady gait, "brain fog", headache which all started morning of admission. Vital signs on admission: Blood pressure 109/70, pulse 102, temperature 98.4, respiratory rate 18, pulse ox 99 on room air, Labs on admission: Normal CBC, BEP, UA showed urine WBC 35. In the ED the patient received sodium Medrol 1000milligrams IV, daptomycin 324 IV once and Dilaudid 2 mg IV once as per her neurologist Dr. Ferro Patient admitted to general medicine for evaluation and treatment of the following: #Acute Exacerbation of Remitting-Relapsing MS: potentially exacerbated by recent stress which she admits to. MRI brain 2017 showed interval development of a single new lesion within the anterior body of the corpus callosum. Remaining pattern lesions throughout the supratentorial and infratentorial brain is stable. She has a stable pattern supratentorial greater than infratentorial white matter lesions. Question of disease progression as she has not had an MRI since. * IV methylprednisolone [address] Ferro, today is 4/5 dose * IV Daptomycin 325mg daily, today is 4/5 dose * Neurology following * Pain managment following: oxycontin 15mg tid, dilaudid 3mg q2h, patient refusing naproxen. States that this cocktail had been the most helpful in controlling her pain but is now not working, will need repeat evaluation by pain management. * Consider MRI brain #Right>Left hip pain: is refractory to her multiple pain medications. With long history of steroids, there is potential for osteonecrosis. Patient had hip xray which was negative for any femoral osteonecrosis in 2012. * MRI showed no osteonecrosis of the fem heads. #History of migraines * Patient already on dilaudid for MS pain * Is on Imitrex as needed 1mg at the start of a migraine and 1mg one hour later if migrain persists with max dose 2mg in 24 hours #History of anxiety and depression * Resumed home meds including Cymbalta, trazodone, Valium Diet-Regular DVT ppx: SC heparin Code: FC Problem List: 1. Multiple sclerosis 2. Migraine Pain Ratin Pain Location: widespread Pain Goal: Pain 4 or less Pain Plan: OxyContin 18 mg 3 times a day and dilaudid 4 mg every 3 hours Tomorrow's Labs & Rationales: [facility] [place] Gustafson MD,Amir 03/07/18 1024: Attending MD Review Statement Attending Statement Attending MD Statement: examined this patient, discuss w/resident/PA/HARBOUR MASTER, agreed w/resident/PA/HARBOUR MASTER, reviewed EMR data (avail), discussed with nursing Attending Assessment/Plan: Pt was seen and evaluated. Chart reviewed. Currently reports pain barely controlled. Was also seen by pain mgmt. If pain remains out of control, re-consult pain mgmt If pain remains adequately controlled can be d/c tomorrow
[2018-03-07 14:25] VITALS: BP 100/58
[2018-03-07 22:22] VITALS: BP 110/62
[2018-03-08 06:20] VITALS: BP 106/74
--- NOTE | 2018-03-08 10:16 | PN- Housestaff ---
Maria De Jesus EDDY,Irene 03/08/18 1015: Subjective Follow-up For: Widespread pain secondary to MS exacerbation Complaints: pain scale (0-10) Subjective: Patient states that today her pain is better than yesterday especially in the back and the neck. She denies any headaches. Review of Systems Constitutional: Reports: no symptoms. EENTM: Reports: no symptoms. Cardiovascular: Reports: no symptoms. Respiratory: Reports: no symptoms. Gastrointestinal: Reports: no symptoms. Genitourinary: Reports: no symptoms. Musculoskeletal: Reports: back pain, joint pain. Skin: Reports: no symptoms. Objective Last 24 Hrs of Vital Signs/I&O Vital Signs Date Time Temp Pulse Resp B/P B/P Pulse O2 O2 Flow FiO2 Mean Ox Delivery Rate 03/08 06 98.6 80 18 106/74 97 Room Air 03/07 2222 97.8 74 16 110/62 99 Room Air 03/07 1425 97.9 74 20 100/58 99 Intake & Output 03/08 1600 03/08 0800 03/08 0000 Intake Total 653 009 3576 Output Total Balance 886 594 1134 Intake, IV 1500 Intake, Oral 764 052 4749 Physical Exam General Appearance: Alert, Oriented X3, Cooperative, No Acute Distress Skin: No Rashes, No Breakdown, No Significant Lesion Skin Temp/Moisture Exam: Warm/Dry Sepsis Skin Exam (color): Normal for Ethnicity Neck: Supple Cardiovascular: Regular Rate, Normal S1, Normal S2, No Murmurs Lungs: Clear to Auscultation, Normal Air Movement Abdomen: Normal Bowel Sounds, Soft, No Tenderness, No Hepatospenomegaly Neurological: Normal Speech Extremities: No Clubbing, No Cyanosis, No Edema, Normal Pulses Current Medications: Current Medications Sig/Brent Start time Last Medication Dose Route Stop Time Status Admin Acetaminophen 650 MG Q6P PRN 03/04 0115 AC PO Daptomycin 325 MG Q24H 03/06 1400 AC 03/08 Sodium Chloride 50 ML IV 03/08 142 1420 Diazepam 5 MG TID 03/04 0359 AC 03/08 PO 1420 Docusate Sodium 100 MG BID 03/04 09 AC 03/08 PO 1023 Duloxetine HCl 90 MG DAILY 03/04 09 AC 03/08 PO 1022 Enoxaparin Sodium 40 MG DAILY 03/04 09 AC SC Fish Oil 1,050 MG DAILY 03/05 1152 AC 03/08 PO 1022 Hydromorphone HCl 4 MG Q3P PRN 03/04 1845 AC 03/08 IV 1021 Magnesium Oxide 400 MG DAILY 03/04 09 AC 03/08 PO 1022 Methylphenidate HCl 10 MG 0800,1200,1700 PRN 03/04 2100 AC PO Methylprednisolone 1,000 MG Q24H 03/06 0900 DC 03/08 Dextrose/Water 1,000 ML IV 03/08 1059 1021 Metoclopramide HCl 10 MG Q6P PRN 03/04 0245 AC IV Ondansetron HCl 4 MG Q6P PRN 03/04 0245 AC IV Oxycodone HCl 15 MG Q8 03/04 2200 AC 03/08 PO 1420 Patient Own 1 UNIT 03/05 AC 03/07 Medication PO 210 Sumatriptan Succinate 100 MG DAILY NEEDED 03/04 1845 AC 03/07 PO 2213 Topiramate 100 MG BID 03/04 09 AC 03/08 PO 1022 Tramadol HCl 50 MG .STK-MED ONE 03/07 2210 DC PO 03/07 2211 Trazodone HCl 50 MG QPM PRN 03/04 0415 AC 03/07 PO 2221 Zolpidem Tartrate 5 MG AT BEDTIME 03/04 2100 AC 03/07 PO 2212 Assessment/Plan Assessment: 47 yo F with a past medical history of multiple sclerosis, migraine, anxiety, depression, remitting-relapsing MS. who presents to ED complaining of severe pain in both hips 09/28, shoulders, back, unsteady gait, "brain fog", headache which all started morning of admission. Vital signs on admission: Blood pressure 109/70, pulse 102, temperature 98.4, respiratory rate 18, pulse ox 99 on room air, Labs on admission: Normal CBC, BEP, UA showed urine WBC 35. In the ED the patient received sodium Medrol 1000milligrams IV, daptomycin 324 IV once and Dilaudid 2 mg IV once as per her neurologist Dr. Ferro Patient admitted to general medicine for evaluation and treatment of the following: #Acute Exacerbation of Remitting-Relapsing MS: potentially exacerbated by recent stress which she admits to. MRI brain 2017 showed interval development of a single new lesion within the anterior body of the corpus callosum. Remaining pattern lesions throughout the supratentorial and infratentorial brain is stable. She has a stable pattern supratentorial greater than infratentorial white matter lesions. Question of disease progression as she has not had an MRI since. * IV methylprednisolone [address] Ferro, today is 5/5 dose * IV Daptomycin 325mg daily, today is 5/5 dose * Neurology following * Pain managment following: oxycontin 15mg tid, dilaudid 3mg q2h, patient refusing naproxen. States that this cocktail had been the most helpful in controlling her pain but is now not working, will need repeat evaluation by pain management. * Consider MRI brain * Patient will likely be discharged tomorrow, if needed we will have pain management return for discharge recommendations on medications. #Right>Left hip pain: is refractory to her multiple pain medications. With long history of steroids, there is potential for osteonecrosis. Patient had hip xray which was negative for any femoral osteonecrosis in 2012. * MRI showed no osteonecrosis of the fem heads. #History of migraines * Patient already on dilaudid for MS pain * Is on Imitrex as needed 1mg at the start of a migraine and 1mg one hour later if migrain persists with max dose 2mg in 24 hours #History of anxiety and depression * Resumed home meds including Cymbalta, trazodone, Valium Diet-Regular DVT ppx: SC heparin Code: FC Problem List: 1. Migraine 2. Back pain 3. Multiple sclerosis Pain Ratin Pain Location: wideSpread Pain Goal: Pain 4 or less Pain Plan: OxyContin 15 mg 3 times a day and Dilaudid 4 mg every 3 hours Tomorrow's Labs & Rationales: [facility] Gustafson MD,Amir 03/08/18 1215: Attending MD Review Statement Attending Statement Attending MD Statement: examined this patient, discuss w/resident/PA/METER CHANGES RECORDS CLERK, agreed w/resident/PA/METER CHANGES RECORDS CLERK, reviewed EMR data (avail), discussed with nursing Attending Assessment/Plan: Pt was seen and evaluated. Still c/o pelvic pain and prefers to stay one more day to receive IV pain med. Pt encouraged to ambulate, will likely be d/c in am if not ready later today. rest of the plan as per resident's note
[2018-03-08 14:51] VITALS: BP 112/60
[2018-03-08 22:03] VITALS: BP 96/68
[2018-03-09 06:52] VITALS: BP 110/70
--- NOTE | 2018-03-09 07:57 | PN- Housestaff ---
Subjective Follow-up For: chronic pain secondary to MS Subjective: patient notes continued pain but states pain is better than admission. vitals stable. patient is asking to stay another day as she is still unhappy with pain control. Review of Systems Constitutional: Reports: no symptoms. Cardiovascular: Reports: no symptoms. Respiratory: Reports: no symptoms. Gastrointestinal: Reports: no symptoms. Musculoskeletal: Reports: back pain, joint pain, muscle pain. Objective Last 24 Hrs of Vital Signs/I&O Vital Signs Date Time Temp Pulse Resp B/P B/P Pulse O2 O2 Flow FiO2 Mean Ox Delivery Rate 03/09 1423 97.8 88 20 116/70 99 Room Air 03/09 0652 97.9 68 16 110/70 97 Room Air Intake & Output 03/09 1600 03/09 0800 03/09 0000 Intake Total 860 500 500 Output Total Balance 860 500 500 Intake, IV 20 20 Intake, Oral 860 480 480 Number 1 Bowel Movements Patient 137 lb Weight Physical Exam General Appearance: Alert, Oriented X3, Cooperative, No Acute Distress HEENT: Atraumatic Cardiovascular: Regular Rate, Normal S1, Normal S2, No Murmurs Lungs: Clear to Auscultation, Normal Air Movement Abdomen: Normal Bowel Sounds, Soft, No Tenderness Neurological: Normal Speech Extremities: No Clubbing, No Cyanosis, No Edema Current Medications: Current Medications Sig/Brent Start time Last Medication Dose Route Stop Time Status Admin Acetaminophen 650 MG Q6P PRN 03/04 0115 DCD PO Diazepam 5 MG TID 03/04 0359 DCD 03/09 PO 1501 Docusate Sodium 100 MG BID 03/04 900 DCD 03/09 PO 0807 Duloxetine HCl 90 MG DAILY 03/04 900 DCD 03/09 PO 0807 Enoxaparin Sodium 40 MG DAILY 03/04 09 DCD SC Fish Oil 1,050 MG DAILY 03/05 1152 DCD 03/09 PO 0807 Hydromorphone HCl 4 MG Q3P PRN 03/04 1845 DCD 03/09 IV 1933 Magnesium Oxide 400 MG DAILY 03/04 09 DCD 03/09 PO 0807 Methylphenidate HCl 10 MG 0800,1200,1700 PRN 03/04 2100 DCD PO Metoclopramide HCl 10 MG Q6P PRN 03/04 0245 DCD IV Ondansetron HCl 4 MG Q6P PRN 03/04 0245 DCD IV Oxycodone HCl 15 MG Q8 03/04 2200 DCD 03/09 PO 1501 Patient Own 1 UNIT 03/05 DCD 03/08 Medication PO 204 Sumatriptan Succinate 100 MG DAILY NEEDED 03/04 184 DCD 03/07 PO 2213 Topiramate 100 MG BID 03/04 0900 DCD 03/09 PO 0807 Trazodone HCl 50 MG QPM PRN 03/04 0415 DCD 03/08 PO 215 Zolpidem Tartrate 5 MG AT BEDTIME 03/04 2100 DCD 03/08 PO 215 Assessment/Plan Assessment: 47 yo F with a past medical history of multiple sclerosis, migraine, anxiety, depression, remitting-relapsing MS. who presents to ED complaining of severe pain in both hips 09/28, shoulders, back, unsteady gait, "brain fog", headache which all started morning of admission. Vital signs on admission: Blood pressure 109/70, pulse 102, temperature 98.4, respiratory rate 18, pulse ox 99 on room air, Labs on admission: Normal CBC, BEP, UA showed urine WBC 35. In the ED the patient received sodium Medrol 1000 milligrams IV, daptomycin 324 IV once and Dilaudid 2 mg IV once as per her neurologist Dr. Ferro Patient admitted to general medicine for evaluation and treatment of the following: #Acute Exacerbation of Remitting-Relapsing MS: potentially exacerbated by recent stress which she admits to. MRI brain 2017 showed interval development of a single new lesion within the anterior body of the corpus callosum. Remaining pattern lesions throughout the supratentorial and infratentorial brain is stable. She has a stable pattern supratentorial greater than infratentorial white matter lesions. Question of disease progression as she has not had an MRI since. * IV methylprednisolone [address] Ferro, last dose yesterday * IV Daptomycin 325mg daily, last dose yesterday * Neurology following * Pain managment following: oxycontin 15mg tid, dilaudid 4mg q3h, patient refusing naproxen. States that this cocktail had been the most helpful in controlling her pain but is now not working. we have contacted pain management who said to continue her outpatient regimen. she has appointment with them on march 30 and they have said if she wants a sooner appointment she can call them. * follow with neuro outpatient * Patient to be dc today * continue outpatient exalgo and short acting hydromorphone #Right>Left hip pain: is refractory to her multiple pain medications. With long history of steroids, there is potential for osteonecrosis. Patient had hip xray which was negative for any femoral osteonecrosis in 2012. * MRI showed no osteonecrosis of the fem heads. #History of migraines * Patient already on dilaudid for MS pain * Is on Imitrex as needed 1mg at the start of a migraine and 1mg one hour later if migrain persists with max dose 2mg in 24 hours #History of anxiety and depression * Resumed home meds including Cymbalta, trazodone, Valium Diet-Regular DVT ppx: SC heparin Code: FC Problem List: 1. Headache 2. Multiple sclerosis Pain Ratin Pain Location: hips and back and neck Pain Goal: Pain 4 or less Pain Plan: oxycontin and dilaudid Tomorrow's Labs & Rationales: na
--- NOTE | 2018-03-09 11:21 | PN- Att Addend ---
Attending Addendum Attending Brief Note Patient seen and examined. Plan of care discussed with the medical team and the patient. Available lab work and radiology test reports were reviewed. Patient complains of bilateral hip pain which gets worse on walking. She denies any fever chills nausea vomiting abdominal pain or difficulty breathing. Her pain is relatively controlled today. Exam: General: Patient awake alert oriented without any distress ; CVS: S1 plus S2 without any murmur or gallops Chest: Few scattered crepitation without any wheeze. There is no respiratory distress. Abdomen: Soft non-tender, bowel sound present, no guarding or rebound [employer]: Awake oriented and follows commands appropriately Extremities: No edema; no clubbing or cyanosis noted Assessment: * MS exacerbation * Low back pain * History of migraine * History of depression * Bilateral hip pain- patient had an x-ray done in 2012 which showed mild arthritis, patient has not been worked up for septic necrosis - Zap was negative for osteonecrosis. Evidence of bursitis and tendinitis was noted. Plan * Completed 5 day course of methylprednisolone and daptomycin; clinically stable for discharge * Continue current pain management as prescribed by pain center; patient is demanding to receive further IV Dilaudid. She also wants to stay later today so that she can get more IV pain medication. When I informed her that we will no longer plan to give IV medication at this point because she is going to go home and that she will be switched to oral regimen she then demanded to call pain center. I informed her that we will call pain center and asked them to come see her however we cannot guarantee that they will be able to see her before discharge. Patient stating that her home regimen has not been working well. I encouraged her to make a follow-up appointment with the pain center and discuss her pain issue with her pain center provider. * Plan for discharge home today Current Medications Sig/Brent Start time Last Medication Dose Route Stop Time Status Admin Acetaminophen 650 MG Q6P PRN 03/04 0115 AC PO Daptomycin 325 MG Q24H 03/06 1400 DC 03/08 Sodium Chloride 50 ML IV 03/08 1429 1420 Diazepam 5 MG TID 03/04 0359 AC 03/09 PO 0805 Docusate Sodium 100 MG BID 03/04 09 AC 03/09 PO 08 Duloxetine HCl 90 MG DAILY 03/04 900 AC 03/09 PO 08 Enoxaparin Sodium 40 MG DAILY 03/04 09 AC SC Fish Oil 1,050 MG DAILY 03/05 1152 AC 03/09 PO 0807 Hydromorphone HCl 4 MG Q3P PRN 03/04 184 AC 03/09 IV 0806 Magnesium Oxide 400 MG DAILY 03/04 09 AC 03/09 PO 0807 Methylphenidate HCl 10 MG 0800,1200,1700 PRN 03/04 2100 AC PO Metoclopramide HCl 10 MG Q6P PRN 03/04 0245 AC IV Ondansetron HCl 4 MG Q6P PRN 03/04 0245 AC IV Oxycodone HCl 15 MG Q8 03/04 220 AC 03/09 PO 0623 Patient Own 1 UNIT 03/05 AC 03/08 Medication PO 204 Sumatriptan Succinate 100 MG DAILY NEEDED 03/04 1845 AC 03/07 PO 2213 Topiramate 100 MG BID 03/04 09 AC 03/09 PO 0807 Trazodone HCl 50 MG QPM PRN 03/04 0415 AC 03/08 PO 2150 Zolpidem Tartrate 5 MG AT BEDTIME 03/04 2100 AC 03/08 PO 2150 Vital Signs Date Time Temp Pulse Resp B/P B/P Pulse O2 O2 Flow FiO2 Mean Ox Delivery Rate 03/09 0652 97.9 68 16 110/70 97 Room Air 03/08 2203 97.6 79 18 96/68 97 03/08 1451 98.0 94 20 112/60 100 Intake & Output 03/09 1600 03/09 0800 03/09 0000 Intake Total 500 500 Output Total Balance 500 500 Intake, IV 20 20 Intake, Oral 480 480 Number 1 Bowel Movements Patient 137 lb Weight Total time spent in preparation for discharge plan, patient education, and CMR preparation was 35 minutes.
[2018-03-09] MEDS ORDERED: HYDROMORPHONE HC8 M1 PO (11:43)
[2018-03-09] MEDS ORDERED: HYDROMORPHONE E12 MG PO (11:45)
[2018-03-09 14:23] VITALS: BP 116/70
== END 2018-03-09 19:50 | DRG 60 ==
LOC: ERH 22:14 → ERHI 03-04 00:57 → 2NA 03-04 00:57 → CANRESERV 03-04 01:25 → ENRESERV 03-04 01:25 → 2NA 03-04 02:37 → ENPENDDIS 03-09 12:11 → 2NA 03-09 19:50
PROVIDERS: Emergency Medicine
DX: G35 Multiple sclerosis (principal); F32.9 Major depressive disorder, single episode, unspecified; G43.909 Migraine, unspecified, not intractable, without status migrainosus; F41.9 Anxiety disorder, unspecified; G47.00 Insomnia, unspecified; G89.29 Other chronic pain
CPT/HCPCS: 2NAP; 75633; 36592; 80307; 81001; 82436; 96374; J0878; J1040; J1650; J2405; J2765; J3030; J3101; J7060